=== PATIENT | male | born 2000 | race Caucasian/White ===

== ENCOUNTER → 2021-06-14 16:50 | Outpatient (CLI) | payer BC, SELFPAY ==
[2021-06-14 21:28] LABS: Thyroid Stimulating Hormone 1.68 uIU/mL (0.465-4.68)
== END ==
PROVIDERS: Visit Provider Internal Medicine
DX: F41.9 Anxiety disorder, unspecified (principal); R63.5 Abnormal weight gain; Z83.49 Family history of other endocrine, nutritional and metabolic diseases
CPT/HCPCS: 84439; 84443